=== PATIENT | male | born 1960 ===

== ENCOUNTER → 2024-12-08 10:18 | Outpatient (BNVA) | payer MEDICARE, OTHER, SELFPAY | PROVIDERS: Visit Provider Nurse Practitioner Family | DX: L57.0 Actinic keratosis (principal); L73.8 Other specified follicular disorders; L91.0 Hypertrophic scar; D22.5 Melanocytic nevi of trunk; L82.1 Other seborrheic keratosis; L57.8 Other skin changes due to chronic exposure to nonionizing radiation; X32.XXXA Exposure to sunlight, initial encounter; L81.4 Other melanin hyperpigmentation; Z08 Encounter for follow-up examination after completed treatment for malignant neoplasm; Z85.828 Personal history of other malignant neoplasm of skin | CPT/HCPCS: 17000; 99204 ==

== ENCOUNTER → 2025-04-15 09:53 | Outpatient (BNVA) | payer MEDICARE, OTHER, SELFPAY | PROVIDERS: Visit Provider Nurse Practitioner Family | DX: L57.8 Other skin changes due to chronic exposure to nonionizing radiation (principal); X32.XXXA Exposure to sunlight, initial encounter; L81.4 Other melanin hyperpigmentation; L57.0 Actinic keratosis; Z08 Encounter for follow-up examination after completed treatment for malignant neoplasm; Z85.828 Personal history of other malignant neoplasm of skin; L82.0 Inflamed seborrheic keratosis | CPT/HCPCS: 17000; 17110; 99213 ==